=== PATIENT | female | born 1995 | race Caucasian/White ===

== ENCOUNTER 2016-10-10 10:35 | Emergency (ER) | payer OTHER ==
[2016-10-10 10:46] VITALS: BP 122/83; PULSE 88; TEMP 98.7; BMI 31.4
--- NOTE | 2016-10-10 11:04 | PDOC ---
History of Present Illness - General Chief Complaint: Respiratory Stated Complaint: COUGH, COLD SX, [place]S Time Seen by Provider: 10/10/16 10:43 History Source: Patient Exam Limitations: No Limitations - History of Present Illness Timing/Duration: unsure Severity: moderate Modifying Factors: improves with: medication, rest Associated Symptoms: reports: cough Past History - Travel Traveled outside of the country in the last 30 days: No Close contact w/someone who was outside of country & ill: No - Past Medical History Allergies/Adverse Reactions: Allergies Allergy/AdvReac Type Severity Reaction Status Date / Time No Known Allergies Allergy Verified 10/10/16 10:40 Home Medications: Ambulatory Orders Control Pills 10/10/16 Other medical history: DENIES - Psycho/Social/Smoking Cessation Hx Anxiety: No Suicidal Ideation: No Smoking History: Never smoked Hx Alcohol Use: No Drug/Substance Use Hx: No Substance Use Type: None Review of Systems - Review of Systems Able to Perform ROS?: Yes Is the patient limited Occitan proficient: Yes Constitutional: Yes: Symptoms Reported, Chills, Malaise HEENTM: Yes: See HPI Respiratory: Yes: Cough Cardiac (ROS): No: Symptoms Reported, See HPI, Chest Pain, Edema, Irregular Heart Rate, Lightheadedness, Palpitations, Syncope, Chest Tightness, Other ABD/GI: No: Symptoms Reported, See HPI, Abdominal Distended, Abd. Pain w/ defecation, Blood Streaked Bowels, Constipated, Diarrhea, Difficulty Swallowing , Nausea, Poor Appetite, Poor Fluid Intake, Rectal Bleeding, Vomiting, Indigestion, Abdominal cramping, Tarry Stools, Other All Other Systems: Reviewed and Negative *Physical Exam - Vital Signs Last Vital Signs Temp Pulse Resp BP Pulse Ox 98.7 F 88 16 122/83 98 10/10/16 10:35 10/10/16 10:35 10/10/16 10:35 10/10/16 10:35 10/10/16 10:35 - Physical Exam General Appearance: Yes: Nourished, Appropriately Dressed, Mild Distress HEENT: positive: SIDNEY, Tonsillar Erythema Neck: positive: Trachea midline, Supple, Lymphadenopathy (R), Lymphadenopathy (L ) Respiratory/Chest: positive: Normal Breath Sounds Cardiovascular: positive: Regular Rate, S1, S2 Gastrointestinal/Abdominal: positive: Flat Lymphatic: positive: Adenopathy Musculoskeletal: positive: Normal Inspection Extremity: positive: Normal Capillary Refill Neurologic: positive: Fully Oriented, Alert, Normal Mood/Affect *DC/Admit/Observation/Transfer Diagnosis at time of Disposition: URI, acute - Discharge Dispostion Disposition: HOME Condition at time of disposition: Stable Admit: No - Referrals Referrals: Julianna Torres [Primary Care Provider] - - Patient Instructions Printed Discharge Instructions: DI for Viral Upper Respiratory Infection -- Adult - Post Discharge Activity Work/School Note: Back to School
== END 2016-10-10 11:55 | disposition home or self-care (01) ==
LOC: FER 10:35
DX: J11.1 Influenza due to unidentified influenza virus with other respiratory manifestations (principal)
CPT/HCPCS: 87070; 87430; 99283-25

== ENCOUNTER 2017-02-23 20:54 | Emergency (ER) | payer OTHER ==
[2017-02-23 21:07] VITALS: BP 120/73; PULSE 105; TEMP 99.9; BMI 31.8
[2017-02-23 21:31] LABS: URINE APPEARANCE Clear; URINE BILIRUBIN Negative (NEGATIVE); URINE GLUCOSE (UA) Negative (NEGATIVE); URINE KETONE Negative (NEGATIVE); URINE LEUK ESTERASE Trace (NEGATIVE); URINE NITRITE Positive (NEGATIVE); URINE PROTEIN Trace (NEGATIVE)
[2017-02-23 21:32] LABS: URINE COLOR YELLOW
--- NOTE | 2017-02-23 21:33 | PDOC ---
History of Present Illness - General History Source: Patient Exam Limitations: No Limitations - History of Present Illness Initial Comments: The patient is a 21 yo F with no pertinent PMHx who presents with nonradiating R sided abdominal pain for 6 days. Patient states her pain lasted for 3 days then stopped for 2 days and then came back last night around 9 pm. Patient states the pain came back about an hour after she ate dinner. Patient states the pain is exacerbated by deep inspiration. Patient denies nausea, vomiting and diarrhea. Patient endorses associated feelings of fevers and fatigue. Patient states she never took her temperature at home. Patient states the pain is constant. Patient denies dysuria, hematuria, Patient denies hematuria and melena. Patient also notes increased frequency of urination. Patient states her last meal was around 4pm today. She notes this meal didnt modify her pain. Patient is on control. Patient denies cough and dyspnea. Patient denies chest pain, palpitations and lightheadedness. Family Hx significant for gallstones. PCP: Dr. Torres <Lanie Bowden - Last Filed: 02/23/17 21:43> <Юлия Contreras - Last Filed: 02/24/17 00:47> - General Chief Complaint: Pain Stated Complaint: RUQ PAIN Time Seen by Provider: 02/23/17 21:07 Past History <Lanie Bowden - Last Filed: 02/23/17 21:43> - Immunization History Immunization Up to Date: Yes - Psycho/Social/Smoking Cessation Hx Anxiety: No Suicidal Ideation: No Smoking History: Never smoked Hx Alcohol Use: Yes (RARE) Drug/Substance Use Hx: No Substance Use Type: None <Юлия Contreras - Last Filed: 02/24/17 00:47> - Past Medical History Allergies/Adverse Reactions: Allergies Allergy/AdvReac Type Severity Reaction Status Date / Time No Known Allergies Allergy Verified 02/23/17 20:59 Home Medications: Ambulatory Orders Ciprofloxacin HCl [Cipro] 500 mg PO BID #14 tablet 02/23/17 Levonorgestrel-Ethin Estradiol [Vienva-28 Tablet] 1 each PO DAILY 02/23/17 Review of Systems - Review of Systems Able to Perform ROS?: Yes Comments:: GENERAL/CONSTITUTIONAL: +fatigue No fever or chills. HEAD, EYES, EARS, NOSE AND THROAT: No change in vision. No ear pain or discharge. No sore throat. CARDIOVASCULAR: No chest pain or shortness of breath. RESPIRATORY: No cough, wheezing, or hemoptysis. GASTROINTESTINAL: +R sided abdominal pain. No nausea, vomiting, diarrhea or constipation. GENITOURINARY: No dysuria, frequency, or change in urination. MUSCULOSKELETAL: No joint or muscle swelling or pain. No neck or back pain. SKIN: No rash NEUROLOGIC: No headache, vertigo, loss of consciousness, or change in strength/ sensation. ENDOCRINE: No increased thirst. No abnormal weight change. HEMATOLOGIC/LYMPHATIC: No anemia, easy bleeding, or history of blood clots. ALLERGIC/IMMUNOLOGIC: No hives or skin allergy. <Lanie Bowden - Last Filed: 02/23/17 21:43> *Physical Exam - Vital Signs Last Vital Signs Temp Pulse Resp BP Pulse Ox 99.9 F H 105 H 15 120/73 100 02/23/17 20:57 02/23/17 20:57 02/23/17 20:57 02/23/17 20:57 02/23/17 20:57 - Physical Exam Comments: GENERAL: The patient is awake, alert, and fully oriented, in no acute distress. HEAD: Normal with no signs of trauma. EYES: Pupils equal, round and reactive to light, extraocular movements intact, sclera anicteric, conjunctiva clear with no pallor. ENT: Ears normal, nares patent, oropharynx clear without exudates. Moist mucous membranes. NECK: Normal range of motion, supple without lymphadenopathy, JVD, or masses. LUNGS: Breath sounds equal, clear to auscultation bilaterally. No wheeze/ crackles. HEART: Regular rate and rhythm, normal S1 and S2 without murmur or rub. ABDOMEN: Soft/mild RUQ tenderness worsened by deep breathing. /nondistended. BS wnl. No guarding or rebound. No palpable masses. No hepatosplenomegaly. EXTREMITIES: Normal range of motion, no edema. No clubbing or cyanosis. No cords , erythema, or tenderness. NEUROLOGICAL: Cranial nerves II through XII grossly intact. Normal speech, normal gait. PSYCH: Normal mood, normal affect. SKIN: Warm, Dry, normal turgor, no rashes or lesions noted. <Lanie Bowden - Last Filed: 02/23/17 21:43> - Vital Signs Last Vital Signs Temp Pulse Resp BP Pulse Ox 99.9 F H 105 H 15 120/73 100 02/23/17 20:57 02/23/17 20:57 02/23/17 20:57 02/23/17 20:57 02/23/17 20:57 <Юлия Contreras - Last Filed: 02/24/17 00:47> ED Treatment Course - ADDITIONAL ORDERS Additional order review: Laboratory Results 02/23/17 02/23/17 21:20 21:20 Urine Color Yellow Urine Appearance Clear Urine pH 8.0 Ur Specific [place] 1.020 Urine Protein Trace Urine Glucose (UA) Negative Urine Ketones Negative Urine Blood 1+ H Urine Nitrite Positive Urine Bilirubin Negative Urine Urobilinogen 1.0 Ur Leukocyte Esterase Trace Urine HCG, Qual Negative <Lanie Bowden - Last Filed: 02/23/17 21:43> Progress Note - Progress Note Progress Note: Documentation has been prepared under my direction and personally reviewed by me in its entirety. I attest that this documented accurately reflects all work, treatment, procedures and medical decision making performed by me. <Юлия Contreras - Last Filed: 02/24/17 00:47> Medical Decision Making - Medical Decision Making As noted above, this 21-year-old woman, otherwise healthy presents with several day history of intermittent right upper quadrant pain. No previous history of this type of pain and pain is not particularly associated with meals. She has no fever/chills/nausea/vomiting. She noted some increase in bowel movements ( soft, not watery) since onset of pain but no black stools or blood in her stools. She has not taken any medication for the pain. She denies hematuria/ dysuria/urinary frequency or urgency. Exam as noted Urinalysis showed 1+ blood and nitrate on dipstick. Subsequent microscopic exam shows 10-15 WBCs, 0-2 RBCs, few epithelial cells and many bacteria. Gallbladder and right renal ultrasound performed to evaluate for cholelithiasis/ ureteral stone/hydronephrosis. Ultrasound study reveals no evidence of stones in gallbladder or other biliary pathology. Kidney likewise showed no evidence of hydronephrosis, kidney stones , ureteral stones, abscess or other acute pathology. There was a right renal cyst. Clinical presentation most consistent with pyelonephritis. Patient has no lower tract symptoms and denies nausea/vomiting. She appears well-hydrated and is able to take fluids without difficulty. She developed a headache while awaiting results of her diagnostic studies and was given ibuprofen 600 mg by mouth. Patient reports improvement in her headache pain and her right upper quadrant pain after ibuprofen. Patient was given ciprofloxacin 500 mg here and prescription for Cipro 500 milligrams twice a day for one week sent to her pharmacy. She is been advised to drink plenty of fluids and make an appointment with her general medical doctor to be seen within the next 3-4 days. Meanwhile, she has nausea/vomiting , high fever or severe pain, she should return to the emergency room. <Юлия Contreras - Last Filed: 02/24/17 00:47> *DC/Admit/Observation/Transfer - Attestations Scribe Attestion: Documentation prepared by Lanie Bowden, acting as medical radiation tech for Юлия Contreras MD/DO. <Lanie Bowden - Last Filed: 02/23/17 21:43> <Юлия Contreras - Last Filed: 02/24/17 00:47> Diagnosis at time of Disposition: Pyelonephritis - Discharge Dispostion Disposition: HOME Condition at time of disposition: Stable - Prescriptions Prescriptions: Ciprofloxacin HCl [Cipro] 500 mg PO BID #14 tablet - Referrals Referrals: Julianna Torres [Primary Care Provider] - Call tomorrow - Patient Instructions Printed Discharge Instructions: Kidney Infection Additional Instructions: Cipro 500 mg twice a day for 1 week Drink plenty of fluids Ibuprofen/acetaminophen/naproxen as needed for pain Return to ER if you have severe pain/vomiting/persistent high fever Call your general doctor tomorrow morning to make appointment within 3-4 days
[2017-02-23 21:56] LABS: URINE BLOOD 1+ (NEGATIVE)
[2017-02-23] MEDS ORDERED: IBUPROFEN 600 MG TABLET (FP) PO ONE ×2 (22:58)
[2017-02-23] MEDS ORDERED: CIPROFLOXACIN 250 MG TABLET (RESTRICTED TO ID) PO ONE (23:18)
[2017-02-23] MEDS ORDERED: CIPROFLOXACIN 500 MG TABLET (RESTRICTED TO ID) PO ONE (23:25)
== END 2017-02-23 23:42 | disposition home or self-care (01) ==
LOC: FER 20:54
DX: N12 Tubulo-interstitial nephritis, not specified as acute or chronic (principal)
CPT/HCPCS: 76705-TC; 76775-TC; 81003; 84703; 87086; 87186; 99282-25

== ENCOUNTER 2017-09-23 11:20 | Emergency (ER) | payer SELFPAY ==
[2017-09-23 11:28] VITALS: BP 132/76; PULSE 76; TEMP 98.5; BMI 31.4
--- NOTE | 2017-09-23 11:34 | PDOC ---
History of Present Illness - General Chief Complaint: Cold Symptoms Stated Complaint: FLU Time Seen by Provider: 09/23/17 11:26 - History of Present Illness Initial Comments: 09/23/17 11:36 Chief complaint: Nasal congestion and earache History of present illness: Patient with congestion since Thursday, right ear pain , nonproductive cough. No fever, chest pain, shortness of breath, nausea, vomiting, diarrhea Review of systems: As above. Otherwise negative Past medical history: No significant medical or surgical illness at present. Social/family history reviewed and noncontributory Physical exam: Alert and oriented well-developed well-nourished no acute distress cooperative Afebrile vital signs normal HEENT: Mild nasal congestion, no discharge. Ears clear. Throat clear. Neck supple without bruit mass or nodes Chest clear with full breath sounds throughout bilaterally, no wheezes rales or rhonchi CV regular without murmur rub or gallop Abdomen benign Skin clear, no rash, adequate turgor and wet mucous membranes Impression: Viral URI with cough. Plan: Symptomatic treatment and follow-up if symptoms worsen. Past History - Past Medical History Allergies/Adverse Reactions: Allergies Allergy/AdvReac Type Severity Reaction Status Date / Time No Known Allergies Allergy Verified 02/23/17 20:59 Home Medications: Ambulatory Orders Levonorgestrel-Ethin Estradiol [Vienva-28 Tablet] 1 each PO DAILY 02/23/17 Fexofenadine/Pseudoephedrine [Ely-D 12 Hour Tablet] 1 each PO Q12H PRN #14 tab.er.12h 09/23/17 COPD: No - Immunization History Immunization Up to Date: Yes - Suicide/Smoking/Psychosocial Hx Smoking History: Never smoked Hx Alcohol Use: Yes (OCCASIONAL) Drug/Substance Use Hx: No Substance Use Type: None *Physical Exam - Vital Signs Last Vital Signs Temp Pulse Resp BP Pulse Ox 98.5 F 76 16 132/76 99 09/23/17 11:23 09/23/17 11:23 09/23/17 11:23 09/23/17 11:23 09/23/17 11:23 *DC/Admit/Observation/Transfer Diagnosis at time of Disposition: Viral URI with cough - Discharge Dispostion Disposition: HOME Condition at time of disposition: Stable Admit: No - Prescriptions Prescriptions: Fexofenadine/Pseudoephedrine [Ely-D 12 Hour Tablet] 1 each PO Q12H PRN #14 tab.er.12h PRN Reason: congestion - Referrals Referrals: Julianna Torres [Primary Care Provider] - 2 Days - Patient Instructions Printed Discharge Instructions: DI for Viral Upper Respiratory Infection -- Adult - Post Discharge Activity Forms/Work/School Notes: Back to Work
== END 2017-09-23 11:45 | disposition home or self-care (01) ==
LOC: FER 11:20
DX: J06.9 Acute upper respiratory infection, unspecified (principal); B97.89 Other viral agents as the cause of diseases classified elsewhere; R05 Cough
CPT/HCPCS: 99282-25